=== PATIENT | female | born 1995 ===

== ENCOUNTER → 2023-06-14 14:51 | Outpatient (CLI) | payer OTHER ==
[~2023-06-14 14:51] MED LIST: PRENATABS FA T1 EACH
== END | disposition home or self-care (01) ==
LOC: PRENATAL 14:51
PROVIDERS: ATTEND Obstetrics & Gynecology Maternal & Fetal Medicine
DX: O36.80X0 Pregnancy with inconclusive fetal viability, not applicable or unspecified (principal); Z36.9 Encounter for antenatal screening, unspecified; Z36.82 Encounter for antenatal screening for nuchal translucency; Z3A.11 11 weeks gestation of pregnancy

== ENCOUNTER → 2023-11-05 15:22 | Outpatient (CLI) | payer OTHER | END | disposition home or self-care (01) | LOC: PRENATAL 15:22 | PROVIDERS: ATTEND Obstetrics & Gynecology Maternal & Fetal Medicine | DX: O26.843 Uterine size-date discrepancy, third trimester (principal); O32.9XX1 Maternal care for malpresentation of fetus, unspecified, fetus 1; O36.8130 Decreased fetal movements, third trimester, not applicable or unspecified; Z3A.32 32 weeks gestation of pregnancy ==

== ENCOUNTER 2023-12-31 08:22 | Inpatient (IN) | payer OTHER ==
[~2023-12-31] VITALS: Ht 152.4 cm; Wt 71.2 kg
[2023-12-31 07:39] VITALS: BP 101/66; O2SAT 99
[2023-12-31] MEDS ORDERED: RINGERS SOLUTION,LACTATED 1,000 ML IV SCH (08:30)
[2023-12-31] MEDS ORDERED: AMPICILLIN SODIUM 2,000 MG VIAL IV ONE (08:30)
[2023-12-31 08:46] LABS: PH,URINE 6.5 (5.0-8.0); URINE APPEARANCE Cloudy; URINE BILIRRUBIN Negative (NEGATIVE); URINE BLOOD Negative; URINE COLOR Yellow; URINE GLUCOSE Negative (NEGATIVE); URINE KETONE Negative (NEGATIVE); URINE LEUKOCYTE Large; URINE NITRATE Negative; URINE PROTEIN Negative (NEGATIVE); URINE UROBILINOGEN 0.2 E.U./dl
[2023-12-31 08:47] LABS: URINE BACTERIA 1812.9 uL (0.0-1933); URINE EPITHELIAL CELLS 78.3 uL (0.0-38.8); URINE WBC 672.2 uL (0.0-23.2)
[2023-12-31] MEDS ORDERED: MISOPROSTOL 25 MCG/4 ML GEL.W.APPL VAG STA (08:48)
[2023-12-31 08:50] LABS: HEMATOCRIT 36.2 % (36.0-45.00); HEMOGLOBIN 12.7 g/dL (12.0-15.00); MEAN CORPUSCULAR HEMOGLOBIN 32.2 pg (27.00-32.0); PLATELET COUNT 191 K/uL (150-450); RED BLOOD COUNT 3.93 M/uL (4.00-6.00); RED CELL DISTRIBUTION WIDTH 13.7 % (11.5-14.5)
[2023-12-31 08:55] LABS: URINE RBC 1.3 uL (0.0-20.8)
[2023-12-31 09:13] LABS: INR < 0.93; PROTHROMBIN TIME 9.9 SECONDS (9.0-11.5)
[2023-12-31 09:19] LABS: ALBUMIN 2.9 gm/dL (3.4-5.0); BILIRUBIN TOTAL 0.61 mg/dL (0.3-1.2); CALCIUM 8.7 mg/dL (8.5-10.1); CREATININE SERUM 0.44 mg/dL (0.55-1.02); GFR 170.26; GLOBULINA 3.5 G/DL (2.4-3.5); POTASSIUM 4.46 mEq/L (3.5-5.1); TOTAL PROTEIN 6.4 gm/dL (6.4-8.2)
[2023-12-31 11:27] VITALS: BP 08/62
[2023-12-31] MEDS ORDERED: AMPICILLIN SODIUM 1,000 MG VIAL IV SCH (13:00)
[2023-12-31] MEDS ORDERED: OXYTOCIN 500 ML IV SCH (14:45)
[2023-12-31 16:09] VITALS: BP 118/78
[2023-12-31] MEDS ORDERED: MORPHINE SULFATE 4 MG/ML CARTRIDGE IV ONE ×2 (17:45→23:45)
[2023-12-31 21:44] VITALS: BP 109/64
[2023-12-31 23:23] VITALS: BP 117/62
[2023-12-31 23:43] VITALS: BP 113/60
[2024-01-01] VITALS (9 sets, daily range): BP systolic 91–137; BP diastolic 47–79
[2024-01-01] MEDS ORDERED: OXYTOCIN 500 ML IV SCH (08:45)
[2024-01-01] MEDS ORDERED: MORPHINE SULFATE 4 MG/ML VIAL IV ONE (09:15)
[2024-01-01] MEDS ORDERED: IBUprofen 400 MG TABLET PO PRN (13:15)
[2024-01-01] MEDS ORDERED: CHLORHEXIDINE GLUCONATE 120 ML BOTTLE TOP ONE (13:45)
[2024-01-01] MEDS ORDERED: OXYTOCIN 1,000 ML IV SCH (13:45)
[2024-01-01] MEDS ORDERED: OXYTOCIN 10 UNITS/ML VIAL IM STA (13:45)
[2024-01-01] MEDS ORDERED: ERYTHROMYCIN BASE OPHT 1GM EACH TUBE OP ONE (14:15)
[2024-01-01] MEDS ORDERED: LIDOCAINE HCL 1% 10ML VIAL IJ ONE (14:15)
[2024-01-01 18:07] LABS: HEMATOCRIT 36.7 % (36.0-45.00); HEMOGLOBIN 12.3 g/dL (12.0-15.00); MEAN CELL VOLUME 93.6 fL (80.00-100.00); MEAN CORPUSCULAR HEMOGLOBIN 31.4 pg (27.00-32.0); MEAN CORPUSCULAR HGB CONC 33.6 g/dl (32.0-36.0); PLATELET COUNT 239 K/uL (150-450); RED BLOOD COUNT 3.93 M/uL (4.00-6.00); RED CELL DISTRIBUTION WIDTH 13.6 % (11.5-14.5)
[2024-01-02 01:31] VITALS: BP 100/60
[2024-01-02 08:01] VITALS: BP 98/55
[2024-01-02 09:12] LABS: HEMATOCRIT 32.6 % (36.0-45.00); MEAN CELL VOLUME 93.6 fL (80.00-100.00); MEAN CORPUSCULAR HEMOGLOBIN 31.8 pg (27.00-32.0); MEAN CORPUSCULAR HGB CONC 33.9 g/dl (32.0-36.0); PLATELET COUNT 199 K/uL (150-450); RED BLOOD COUNT 3.48 M/uL (4.00-6.00); RED CELL DISTRIBUTION WIDTH 13.4 % (11.5-14.5)
[2024-01-02 16:22] VITALS: BP 102/64
[2024-01-02 20:11] VITALS: BP 102/62
[2024-01-03 01:47] VITALS: BP 101/66
[2024-01-03 08:20] VITALS: BP 108/71
== END 2024-01-03 19:35 | disposition home or self-care (01) | DRG 807 ==
LOC: OB/GYN 08:22 → LDR 08:22 → OB/GYN 01-01 12:55
PROVIDERS: ADMIT Obstetrics & Gynecology; ATTEND Obstetrics & Gynecology
PROC: 3E0P7VZ Introduction of Hormone into Female Reproductive, Via Natural or Artificial Opening (ICD-10-PCS; 2023-12-31)
PROC: 4A1HXCZ Monitoring of Products of Conception, Cardiac Rate, External Approach (ICD-10-PCS; 2023-12-31)
PROC: 10E0XZZ Delivery of Products of Conception, External Approach (ICD-10-PCS; principal; 2024-01-01)
PROC: 0W8NXZZ Division of Female Perineum, External Approach (ICD-10-PCS; 2024-01-01)
PROC: 3E033VJ Introduction of Other Hormone into Peripheral Vein, Percutaneous Approach (ICD-10-PCS; 2024-01-01)
DX: O80 Encounter for full-term uncomplicated delivery (principal); Z37.0 Single live birth; Z3A.40 40 weeks gestation of pregnancy; Z20.822 Contact with and (suspected) exposure to COVID-19